=== PATIENT | female | born 1960 | race Caucasian/White ===

== ENCOUNTER 2017-08-02 12:55 | Emergency (ER) | payer BC, OTHER ==
--- NOTE | 2017-08-02 13:15 | EDM.PDOC ---
ED HPI GENERAL MEDICAL PROBLEM - General Chief Complaint: Upper Extremity Injury/Pain Stated Complaint: fall Time Seen by Provider: 08/02/17 13:10 Source of Information: Reports: Patient, Significant Other (Fiance) History Limitations: Reports: No Limitations - History of Present Illness INITIAL COMMENTS - FREE TEXT/NARRATIVE: The patient was brought to the emergency room via private automobile by her fianc for evaluation of a Workmen's Compensation injury, which occurred at about 12:30 p.m. this afternoon. The patient accidentally tripped on a throw rug falling and injuring her right proximal arm and left knee. She has not injured these areas in the past, although she is currently being treated by physical therapy and her chiropractor for borderline right frozen shoulder and biceps tendinitis with improvement of symptoms with physical therapy. She denies any history of head injury, loss of consciousness, headaches, visual changes, neck/back pain, paresthesias, neurological deficits, or other complaints or injuries. She rates her right proximal arm pain at 6/10 with 2/10 left knee pain with abrasion in this area. She does not know when she received her last tetanus booster. The patient denies any chest pain/pressure, heart flutter, dizziness, orthostasis, orthopnea, diaphoresis, paresthesias, recent decreased exercise tolerance, or any other anginal-type symptoms. No recent history of abdominal pain, heartburn, nausea, diarrhea, melena, gross hematochezia, or any food intolerance, including fatty foods, etc.. The patient also denies any recent fever, cough, wheezing, dyspnea, etc.. She is right- handed Onset: Today, Sudden Onset Date: 08/02/17 Onset Time: 12:30 Duration: Constant Location: Reports: Head, Upper Extremity, Right, Lower Extremity, Left. Denies : Face, Neck, Chest, Abdomen, Back, Pelvis, Upper Extremity, Left, Generalized, Radiates to Quality: Reports: Ache, Throbbing Severity: Moderate Improves with: Reports: Rest Worsens with: Reports: Movement Context: Reports: Trauma (As above) Associated Symptoms: Denies: Confusion, Chest Pain, Cough, Diaphoresis, Fever/ Chills, Headaches, Loss of Appetite, Malaise, Nausea/Vomiting, Rash, Seizure, Shortness of Breath, Syncope, Weakness Treatments TREE PRUNER: Reports: Cold Therapy (Left knee) Right Shoulder Pain Score (Numeric/FACES): 6 (Pain is actually in mid humeral region) Left Knee Pain Score (Numeric/FACES): 2 - Related Data Allergies Allergy/AdvReac Type Severity Reaction Status Date / Time amoxicillin [From Augmentin] Allergy Rash Verified 08/02/17 12:57 cimetidine [From Tagamet] Allergy Headache Verified 08/02/17 12:57 clavulanic acid Allergy Rash Verified 08/02/17 12:57 [From Augmentin] Home Meds: Home Meds Cholecalciferol (Vitamin D3) [Vitamin D3] 1 tab PO DAILY 08/02/17 [History] Fish Oil/[place]-3 Fatty Acids [Fish Oil 1,000 MG] 1 tab PO DAILY 08/02/17 [ History] Past Medical History HEENT History: Reports: Allergic Rhinitis, Impaired Vision, Other (See Below). Denies: Cataract, Glaucoma, Hard of Hearing, Macular Degeneration, Otitis Media , Retinal Detachment Other HEENT History: Patient was glasses, seasonal allergic rhinitis usually in the summer Cardiovascular History: Reports: None, Other (See Below). Denies: Afib, Aneurysm, Arrhythmia, Blood Clots/VTE/DVT, CAD, Cardiomyopathy, Heart Failure, Heart Murmur, High Cholesterol, Hypertension, PA, PVD, Syncope Other Cardiovascular History: Patient does not know her cholesterol status Respiratory History: Reports: None. Denies: Asthma, Bronchitis, Recurrent, COPD , Intubation, Difficult, Intubation, Previous, PE, Pneumonia, Recurrent, Pneumothorax, Sleep Apnea Gastrointestinal History: Reports: Cholelithiasis, Other (See Below). Denies: Celiac Disease, Chronic Constipation, Chronic Diarrhea, Cirrhosis, Colon Polyp, Fecal Incontinence, Gastritis, GERD, GI Bleed, Hepatitis, Hiatal Hernia, Inflammatory Bowel Disease, Irritable Bowel Syndrome, Jaundice, Pancreatitis, PUD Other Gastrointestinal History: Gallbladder sludgenonsymptomatic Genitourinary History: Reports: None. Denies: Acute Renal Failure, Chronic Renal Insuffiency, Renal Calculus, STD, Urinary Incontinence, UTI, Recurrent WIRELESS DEVELOPMENT MANAGER History: Denies: Dysfunctional Uterine Bleeding, Endometriosis, , Spontaneous LMP (Approximate): Other (See Below) Other OB/BYN History: Benign vaginal cyst by serial ultrasounds, menopause in 2014 Musculoskeletal History: Reports: Arthritis, Fracture, Osteoarthritis, Other ( See Below). Denies: Back Pain, Chronic, Fibromyalgia, Gout, Neck Pain, Chronic , Osteoporosis, RA, SLE Other Musculoskeletal History: Borderline right frozen shoulder, right wrist fracture in 1991, right wrist ganglion cyst in 2008 treated by her chiropractor with no surgery Neurological History: Reports: None. Denies: Cerebral Aneurysms, Concussion, CVA, Head Trauma, Migraines, MS, Neuropathy, Peripheral, Parkinson's, Seizure, TIA Psychiatric History: Reports: None. Denies: Abuse, Victim of, ADD, ADHD, Addiction, Aggressive/Hostile Behaviors, Anxiety, Bipolar, Dementia, Depression , Emotional Problems, Psych Hospitalization(s), PTSD, Suicide Attempt, Suicidal Ideation Endocrine/Metabolic History: Reports: Obesity/BMI 30+. Denies: Diabetes, Type I , Diabetes, Type II, Hypothyroidism, IDDM Hematologic History: Reports: None. Denies: Anemia, Blood Transfusion(s), Iron Deficiency Immunologic History: Reports: None. Denies: AIDS, HIV, SLE Oncologic (Cancer) History: Reports: None. Denies: Basal Cell Carcinoma, Cervix , Colon, Hodgkin's Lymphoma, Leukemia, Lymphoma, Malignant Melanoma, Non-Hodgkin 's Lymphoma, Squamous Cell Carcinoma Dermatologic History: Reports: None. Denies: Eczema, Psoriasis - Infectious Disease History Infectious Disease History: Reports: Chicken Pox, Mumps, Shingles (Shingles in her left abdominal/back region at about age 23). Denies: C-Difficile, Measles, Meningitis, Mononucleosis, MRSA, Pertussis (Whooping Cough), Rheumatic Fever, Rubella, Scarlet Fever, VRE - Past Surgical History Head Surgeries/Procedures: Reports: None HEENT Surgical History: Reports: Oral Surgery, Visual. Denies: Adenoidectomy, Cataract Surgery, Eye Surgery, Laser Surgery, LASIK, Myringotomy w Tube(s), Naso -Sinus Surgery, Tonsillectomy Other HEENT Surgeries/Procedures: [place] teeth extraction 4 in her late 20s Cardiovascular Surgical History: Reports: None. Denies: Varicose, Vascular Surgery Respiratory Surgical History: Reports: None. Denies: Thoracentesis GI Surgical History: Reports: None. Denies: Appendectomy, Cholecystectomy, Colonoscopy, EGD, Hernia, Abdominal, Hernia, Inguinal, Hernia Repair/Other Female Surgical History: Reports: None. Denies: Breast Biopsy, D&C, Tubal Ligation Endocrine Surgical History: Reports: None. Denies: Thyroid Biopsy Neurological Surgical History: Reports: None. Denies: C-Spine, Discectomy, Intracranial, Laminectomy, Lumbar Spine, Sacral Spine, Spinal Fusion, Thoracic Spine, Vertebroplasty Musculoskeletal Surgical History: Reports: None. Denies: Amputation, Arthroscopic Procedure, Carpal Tunnel, Ganglion Cyst, Hip Replacement, Joint Replacement, ORIF, Shoulder Surgery Oncologic Surgical History: Reports: None Dermatological Surgical History: Reports: None - Past Imaging History Past Imaging History: Reports: CAT Scan (CT of the abdomen and pelvis on 12/16/10 ), HIDA Scan (Negative scan on 08/15/07), Mammogram (Last mammogram on 02/24/11) , Ultrasound (Abdominal and pelvic ultrasound on 07/26/07 with previous abdominal ultrasound on 07/24/06;, pelvic ultrasound on 12/03/10; renal ultrasound on 07/30/08) Social & Family History - Tobacco Use Smoking Status *Q: Never Smoker Tobacco Use Within Last Twelve Months: No Used Tobacco, but Quit: No Smoking Cessation Information Provided To Patient: No Second Hand Smoke Exposure: No Second Hand Smoke Education Provided: No - Living Situation & Occupation Living situation: Reports: Single (No children), Alone Occupation: Employed Social History 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 ED EXAM, GENERAL - Physical Exam Exam: See Below Exam Limited By: No Limitations General Appearance: Alert, WD/WN, No Apparent Distress Head: Atraumatic, Normocephalic. No: Facial Swelling, Facial Tenderness, Sinus Tenderness Neck: Normal Inspection, Supple, Non-Tender, Full Range of Motion. No: Lymphadenopathy (L), Lymphadenopathy (R), Thyromegaly Respiratory/Chest: No Respiratory Distress, Lungs Clear, Normal Breath Sounds, No Accessory Muscle Use, Chest Non-Tender. No: Pleural Rub, Retractions Cardiovascular: Normal Peripheral Pulses, Regular Rate, Rhythm, No Edema, No Gallop, No JVD, No Rub, Systolic Murmur (1/6 ERNESTO at the aortic valve). No: Gallop/S3, Gallop/S4, Friction Rub Peripheral Pulses: 2+: Radial (L), Radial (R), Dorsalis Pedis (L), Dorsalis Pedis (R) GI/Abdominal: Normal Bowel Sounds, Soft, Non-Tender, No Organomegaly, No Distention, No Abnormal Bruit, No Mass, Pelvis Stable, Other (obese). No: Guarding (Female) Exam: Deferred Rectal (Female) Exam: Deferred Back Exam: Normal Inspection, Full Range of Motion. No: CVA Tenderness (L), CVA Tenderness (R), Muscle Spasm Extremities: No Pedal Edema, Normal Capillary Refill, Arm Pain (Moderate localized tenderness over the triceps area of the right arm with secondary decreased range of motion, 3 cm in diameter superficial abrasion over the left patella with mild localized tenderness but no joint instability, crepitation, deformity, fracture, etc. either in her knee or right shoulder/arm), Limited Range of Motion. No: Zaina's Sign Neurological: Alert, Oriented, CN II-XII Intact, Normal Cognition, Normal Gait, Normal Reflexes, No Motor/Sensory Deficits Psychiatric: Anxious (Moderate). No: Depressed Mood Skin Exam: Wound/Incision (Abrasion as above). No: Diaphoretic, Ecchymosis Lymphatic: No Adenopathy Course - Vital Signs Last Recorded V/S: Last Vital Signs Temp 36.9 C 08/02/17 13:02 Pulse 83 08/02/17 14:00 Resp 16 08/02/17 14:00 BP 165/97 H 08/02/17 14:00 Pulse Ox 100 08/02/17 14:00 Vital Signs - 24 hr 08/02/17 08/02/17 08/02/17 13:02 13:05 13:13 Temperature [ 36.9 C Temporal] Pulse, 84 80 82 Peripheral [ Right Pulse Oximetry] Respiratory 16 18 16 Rate Blood Pressure 169/90 H 164/108 H 150/89 H [Left Upper Arm ] O2 Sat by Pulse 97 99 99 Oximetry 08/02/17 14:00 Temperature [ Temporal] Pulse, 83 Peripheral [ Right Pulse Oximetry] Respiratory 16 Rate Blood Pressure 165/97 H [Left Upper Arm ] O2 Sat by Pulse 100 Oximetry - Orders/Labs/Meds Orders: Active Orders 24 hr Category Date Time Status Vaccines to be Administered [RC] PER UNIT ROUTINE Care 08/02/17 13:17 Active Humerus Rt [CR] Stat Exams 08/02/17 13:20 Taken Knee 3V Lt [CR] Stat Exams 08/02/17 13:16 Taken Obtain Past Medical Record [OM.PC] Routine Oth 08/02/17 13:15 Active Labs: None Meds: Medications Discontinued Medications Generic Name Dose Route Start Last Admin Trade Name Eugenia PRN Reason Stop Dose Admin Diphtheria/Tetanus/Acell Pertussis 0.5 ml 08/02/17 13:17 08/02/17 13:48 Adacel IM 08/02/17 13:18 0.5 ml .ONCE ONE Administration Neomycin/Polymyxin/Bacitracin 1 each 08/02/17 13:17 08/02/17 13:50 Triple Antibiotic Oint TOP 08/02/17 13:18 1 each ONETIME ONE Administration - Radiology Interpretation Free Text/Narrative:: X-rays of the right humerus, complete, shows mild osteoarthritic changes with no evidence of fracture, dislocation, foreign body, etc. X-rays of the left knee, 3 views, shows mild osteoarthritic changes with no joint effusion, fracture, dislocation, etc. Departure - Departure Time of Disposition: 14:20 Disposition: Home, Self-Care 01 Condition: Good Clinical Impression: Right upper limb pain, Abrasion, Elevated blood pressure reading, Contusion, Mixed anxiety depressive disorder Left knee pain Qualifiers: Chronicity: acute Qualified Code(s): M25.562 - Pain in left knee Osteoarthritis Qualifiers: Osteoarthritis location: multiple joints Osteoarthritis type: primary Qualified Code(s): M15.0 - Primary generalized (osteo)arthritis Aortic stenosis Qualifiers: Cardiac valve disease etiology: etiology unspecified Qualified Code(s): I35.0 - Nonrheumatic aortic (valve) stenosis - Discharge Information Instructions: Heart-Healthy Eating Plan, [id number], Contusion, [id number] , Abrasion, [id number] Referrals: Rafiq Dsouza PA [Primary Care Provider] - Forms: ED Department Discharge, ED Return to Work/School Form Additional Instructions: 1. Follow up with your regular provider in 10-14 days as needed, if symptoms persist. 2. Tylenol 650 mg by mouth every 4 hours and/or OTC ibuprofen 2-3 tabs by mouth every 6 hours with food as directed./needed. 3. BenGay or equivalent, heating pad, and/or ice packs as directed. 4. Antibacterial soap wash/soak with subsequent antibacterial dressing such as Neosporin, etc. as directed 2 times per day until the wound or laceration site completely heals. Keep the area clean and dry with activity restrictions as discussed. 5. Work excuse- See Form 6. Continue to observe your blood pressure and pulse closely through your regular providers 7. Continue previous physical therapy as already scheduled 8. Update your yearly physical exam [facility]INA including recommended mammogram, colonoscopy, lipid profile, etc. as discussed - Problem List & Annotations (1) Right upper limb pain SNOMED Code(s): 765913805 Code(s): M79.601 - PAIN IN RIGHT ARM Status: Acute Priority: High Onset Date: 08/02/17 Annotation/Comment:: Moderate contusion of the right mid humeral triceps region with no evidence of significant swelling, ecchymosis, etc. at time of exam. Workmen's Compensation and work excuse forms were completed. Symptomatic relief for now. Various therapeutic options were discussed with the patient not wishing to have IM Toradol, etc. Close follow-up by regular provider depending on her clinical course. Otherwise continue physical therapy as before as below. Despite left knee contusion and abrasion as below, her main complaint appears to be in her right proximal arm as above. (2) Left knee pain SNOMED Code(s): 90097265 Code(s): M25.562 - PAIN IN LEFT KNEE Status: Acute Priority: High Onset Date: 08/02/17 Annotation/Comment:: Mild left knee strain and abrasion with no evidence of joint instability, effusion, etc. Symptomatic relief as per discharge instructions. Follow-up with regular providers depending on her clinical course. DTaP given with nurse placing a Neosporin dressing. Wound care , activity restrictions, etc. discussed Qualifiers: Chronicity: acute Qualified Code(s): M25.562 - Pain in left knee (3) Osteoarthritis SNOMED Code(s): 808230576 Code(s): M19.90 - UNSPECIFIED OSTEOARTHRITIS, UNSPECIFIED SITE Status: Chronic Priority: Medium Annotation/Comment:: Chronic right shoulder and arm pain with physical therapy currently in effect. Continue physical therapy as discussed. Osteoarthritis is otherwise stable by history Qualifiers: Osteoarthritis location: multiple joints Osteoarthritis type: primary Qualified Code(s): M15.0 - Primary generalized (osteo)arthritis (4) Aortic stenosis SNOMED Code(s): 26445615 Code(s): I35.0 - NONRHEUMATIC AORTIC (VALVE) STENOSIS Status: Acute Priority: Medium Onset Date: 08/02/17 Annotation/Comment:: Newly diagnosed probable benign functional aortic valve stenosis by clinical exam. Continue to observe closely by regular providers with update of her HCM, etc. TRINA recommended as per discharge instructions. Her routine healthcare, including mammogram, colonoscopy, etc. are behind schedule Qualifiers: Cardiac valve disease etiology: etiology unspecified Qualified Code(s): I35.0 - Nonrheumatic aortic (valve) stenosis (5) Abrasion SNOMED Code(s): 148526150 Code(s): T14.8XXA - OTHER INJURY OF UNSPECIFIED BODY REGION, INITIAL ENCOUNTER Status: Acute Priority: Medium Onset Date: 08/02/17 Annotation /Comment:: Left knee abrasion as above (6) Contusion SNOMED Code(s): 758910519 Code(s): T14.8XXA - OTHER INJURY OF UNSPECIFIED BODY REGION, INITIAL ENCOUNTER Status: Acute Priority: High Onset Date: 08/02/17 Annotation/ Comment:: Right arm and left knee contusion as above Qualifiers: Encounter type: initial encounter Contusion area: upper arm Laterality: right Qualified Code(s): S40.021A - Contusion of right upper arm, initial encounter (7) Elevated blood pressure reading SNOMED Code(s): 12920169 Code(s): R03.0 - ELEVATED BLOOD-PRESSURE READING, W/O DIAGNOSIS OF HTN Status: Acute Priority: Medium Onset Date: 08/02/17 Annotation/Comment:: No previous history of hypertension with persistent elevated blood pressures likely secondary to her discomfort and anxiety. Continue to observe closely by her medical providers with no medical therapy for now (8) Mixed anxiety depressive disorder SNOMED Code(s): 364719152 Code(s): F41.8 - OTHER SPECIFIED ANXIETY DISORDERS Status: Acute Priority : Medium Onset Date: 08/02/17 Annotation/Comment:: Moderate anxious affect during today's visit. Observe for now. Continue to observe closely by her regular providers - Problem List Review Problem List Initiated/Reviewed/Updated: Yes - My Orders Last 24 Hours: My Active Orders 08/02/17 13:15 Obtain Past Medical Record [OM.PC] Routine 08/02/17 13:16 Knee 3V Lt [CR] Stat 08/02/17 13:17 Vaccines to be Administered [RC] PER UNIT ROUTINE 08/02/17 13:20 Humerus Rt [CR] Stat - Assessment/Plan Last 24 Hours: My Active Orders 08/02/17 13:15 Obtain Past Medical Record [OM.PC] Routine 08/02/17 13:16 Knee 3V Lt [CR] Stat 08/02/17 13:17 Vaccines to be Administered [RC] PER UNIT ROUTINE 08/02/17 13:20 Humerus Rt [CR] Stat Assessment:: As above Plan: As above. Extensive precautions were given to the patient and her fianc, who are in agreement with the treatment plan. See Patient Instructions for further treatment and plan.
[2017-08-02] MEDS ORDERED: Bacitracin/Neomycin/Polymyxin B Oint 0.9 GM U/D Packet TOP ONE (13:17)
[2017-08-02] MEDS ORDERED: Diphtheria,Pertussis(Acell),Tetanus Vaccine 0.5 ML SDV IM ONE (13:17)
== END 2017-08-02 14:20 | disposition home or self-care (01) ==
LOC: LL.ED 12:55
DX: S80.212A Abrasion, left knee, initial encounter (principal); T14.8XXA Other injury of unspecified body region, initial encounter; F41.8 Other specified anxiety disorders; M15.0 Primary generalized (osteo)arthritis; I35.0 Nonrheumatic aortic (valve) stenosis; Z23 Encounter for immunization; Z88.1 Allergy status to other antibiotic agents; Z79.899 Other long term (current) drug therapy; W01.0XXA Fall on same level from slipping, tripping and stumbling without subsequent striking against object, initial encounter; Y99.0 Civilian activity done for income or pay
CPT/HCPCS: 73060-RT; 73562-LT; 90471; 90715; 99284